=== PATIENT | female | born 1945 | race Caucasian/White ===

== ENCOUNTER 2017-06-04 10:14 | Outpatient (CLI) | payer MEDICARE, OTHER | END 2017-06-04 10:15 | disposition home or self-care (01) | LOC: BICMAMMO 10:14 | PROVIDERS: ATTEND Family Medicine | DX: Z12.31 Encounter for screening mammogram for malignant neoplasm of breast (principal); Z80.3 Family history of malignant neoplasm of breast | CPT/HCPCS: 77063; 77067; 77080 ==

== ENCOUNTER 2018-06-07 09:38 | Outpatient (CLI) | payer MEDICARE, OTHER | END 2018-06-07 09:39 | disposition home or self-care (01) | LOC: BICMAMMO 09:38 | PROVIDERS: ATTEND Family Medicine | DX: Z12.31 Encounter for screening mammogram for malignant neoplasm of breast (principal) | CPT/HCPCS: 77063; 77067 ==

== ENCOUNTER 2018-09-25 13:30 | Outpatient (CLI) | payer OTHER | END 2018-09-25 13:31 | disposition home or self-care (01) | LOC: DTY/OP 13:30 | PROVIDERS: ATTEND Family Medicine | DX: E88.81 Metabolic syndrome and other insulin resistance (principal); E78.00 Pure hypercholesterolemia, unspecified; M54.5 Low back pain | CPT/HCPCS: 97802 ==

== ENCOUNTER 2019-06-12 08:53 | Outpatient (CLI) | payer MEDICARE, OTHER ==
--- NOTE | 2019-06-12 09:35 | MMO ---
Bilateral MAMMO Bilat Screen [facility]. CLINICAL HISTORY: Patient is 74 years old and is seen for screening. The patient has no family history of breast cancer. The patient has no personal history of cancer. VIEWS: The views performed were: bilateral craniocaudal with tomosynthesis and bilateral mediolateral oblique with tomosynthesis. FILMS COMPARED: The present examination has been compared to prior imaging studies performed at [facility] on 05/26/2015, 05/29/2016, 06/04/2017 and 06/07/2018. This study has been interpreted with the assistance of computer-aided detection. MAMMOGRAM FINDINGS: There are scattered fibroglandular densities. There are stable benign appearing calcifications seen in both breasts. There are no suspicious masses, suspicious calcifications, or new areas of architectural distortion. IMPRESSION: THERE IS NO MAMMOGRAPHIC EVIDENCE OF MALIGNANCY. A ROUTINE FOLLOW-UP MAMMOGRAM IN 1 YEAR IS RECOMMENDED. THE RESULTS OF THIS EXAM WERE SENT TO THE PATIENT. ACR BI-RADS Category 2 - Benign finding MAMMOGRAPHY NOTE: 1. A negative mammogram report should not delay a biopsy if a dominant of clinically suspicious mass is present. 2. Approximately 10% to 15% of breast cancers are not detected by mammography. 3. Adenosis and dense breasts may obscure an underlying neoplasm. Reported by: NATALIE MACHUCA MD Electonically Signed: [id number]
== END 2019-06-12 08:54 | disposition home or self-care (01) ==
LOC: BICMAMMO 08:53
PROVIDERS: ATTEND Family Medicine
DX: Z12.31 Encounter for screening mammogram for malignant neoplasm of breast (principal)
CPT/HCPCS: 77063; 77067

== ENCOUNTER 2022-06-09 13:42 | Outpatient (CLI) | payer MEDICARE, OTHER ==
[2022-06-09 15:04] LABS: #Basophils 0.1 10x3/uL (0.0-0.2); #Eosinphils 0.2 10x3/uL (0.0-0.5); #Monocytes 0.6 10x3/uL (0.0-1.1); #Neutrophils 5.1 10x3/uL (1.5-8.4); %Basophils 0.6 % (0.0-2.0); %Eosinophils 1.8 % (0.0-6.0); %Lymphocytes 39.4 % (18.0-47.0); %Monocytes 6.1 % (0.0-10.0); %Neutrophils 51.8 % (40.0-75.0); Hemoglobin 14.2 g/dL (12.0-15.5); Mean Corpuscular HGB CONC 35.1 g/dL (32.0-36.0); Mean Corpuscular Hemoglobin 30.9 pg (27.0-33.0); Platelet Count 320 10x3/uL (150-450); RBC Distribution Width 11.9 % (11.5-14.5); Red Blood Cell (RBC) Count 4.59 10x6/uL (3.90-5.03); White Blood Cell (WBC) Count 9.9 10x3/uL (3.5-10.5)
== END 2022-06-09 13:43 | disposition home or self-care (01) ==
LOC: LABBT 13:42
PROVIDERS: ATTEND Orthopaedic Surgery Hand Surgery
DX: Z01.818 Encounter for other preprocedural examination (principal); M65.4 Radial styloid tenosynovitis [de Quervain]
CPT/HCPCS: 85025; 93005; 93010

== ENCOUNTER 2022-06-13 05:25 | Day surgery (SDC) | payer MEDICARE, OTHER ==
[2022-06-12 11:40] VITALS: BMI 26.4
[2022-06-13] MEDS ORDERED: Bacitracin Zinc Ointment 30 gm TUBE ONE (06:23)
[2022-06-13] MEDS ORDERED: Bupivacaine PF 0.5% 30 ML VIAL ONE (06:23)
[2022-06-13] MEDS ORDERED: Betamet Acet/Betamet Na Ph 30 MG/5 ML VIAL ONE (06:23)
[2022-06-13] MEDS ORDERED: Promethazine HCl 25 MG/ML VIAL ONE (07:00)
[2022-06-13] MEDS ORDERED: Vancomycin 1 GM/200 ML (FROZEN) BAG ONE (07:02)
[2022-06-13] MEDS ORDERED: Dexamethasone 20 MG/5 ML VIAL ONE (07:08)
[2022-06-13] MEDS ORDERED: Ondansetron PF 4 MG/2 ML Vial ONE (07:08)
[2022-06-13] MEDS ORDERED: Lidocaine 1% PF 5 ML VIAL ONE (07:08)
[2022-06-13] MEDS ORDERED: PROPOFOL 200 MG/20 ML VIAL ONE (07:08)
[2022-06-13] MEDS ORDERED: Ketorolac Tromethamine 30 MG/ML VIAL ONE (08:00)
== END 2022-06-13 09:15 | disposition home or self-care (01) ==
LOC: SDC 05:25
PROVIDERS: ATTEND Orthopaedic Surgery Hand Surgery
PROC: 0LN60ZZ Release Left Lower Arm and Wrist Tendon, Open Approach (ICD-10-PCS; principal; 2022-06-13)
DX: M65.4 Radial styloid tenosynovitis [de Quervain] (principal); I10 Essential (primary) hypertension; M19.90 Unspecified osteoarthritis, unspecified site; Z79.82 Long term (current) use of aspirin; Z79.899 Other long term (current) drug therapy; Z88.0 Allergy status to penicillin
CPT/HCPCS: 25000; J3370; J0702; J1100; J1885; J2405; J2550; J2704; S0020